=== PATIENT | male | born 1955 | race Caucasian/White ===

== ENCOUNTER → 2017-04-23 07:29 | Outpatient (CLI) | payer MEDICARE ==
[~2017-04-23] VITALS: Ht 177.8 cm; Wt 95.5 kg
--- NOTE | ~2017-04-23 | HEMODYNAMI ---
PATIENT:CHIVO FRY MEDICAL RECORD: [id number] : 55 LOCATION:[facility] ADMISSION DATE: 04/23/17 Generatedon:04/23/20179:54 Patient name: CHIVO FRY Patient #: [id number] SSN: : 1955 Date of study: 04/23/2017 Page: Of Hemodynamic Procedure Report Patient Data Patient Demographics Procedure consent was obtained First Name: CHIVO Gender: Male Last Name: LISANDRA : 1955 Patient #: [id number] Age: 61 year(s) Race: Unknown Additional ID: [id number] Contact details [address]: [address] [place] [address] State: [place] City: [place] Zip code: [address] Admission Admission Data Admission Date: 04/23/2017 Admission Time: 7:29 Procedure Procedure Types Cath Procedure Diagnostic Procedure LHC LHC w/Coronaries Miscellaneous Procedures Procedure Description Procedure Date Procedure Date: 04/23/2017 Procedure Start Time: 9:41 Procedure End Time: 9:52 Procedure Staff Name Function Og Wen MD Performing Physician Susana Israel RT Monitor Shahrzad Nelson RT Scrub Amanuel Mckenzie RN Nurse Maria Ines Sahni RN Nurse Procedure Data Cath Procedure Fluoroscopy Diagnostic fluoroscopy Total fluoroscopy Time: 3.4 time: 3.4 min min Diagnostic fluoroscopy Total fluoroscopy dose: 561 dose: 561 mGy mGy Contrast Material Contrast Material Type Amount (ml) Isovue 300 66 Entry Location Entry Primary Successful Side Size Upsize Upsize Entry Closure [place] ccessful Closure Location (Fr) 1 (Fr) 2 (Fr) Remarks Device Remarks Radial Right 6 Fr Mechanical tr artery Short Compression Estimated blood loss: 10 ml Diagnostic catheters Device Type Used For End Catheter Placement DIAGNOSTIC [place] 110cm 5 Procedure Fr catheter ([id number]) Procedure Complications No complications Procedure Medications Medication Administration Route Dosage 0.9% NaCl I.V. 100 ml/hr Oxygen NC 2 l/min Lidocaine 2% added to field 20 Heparin Flush Bag added to field 2 bags (1000units/500ml NS) Radial Cocktail added to field 1 syringe (Verapomil 2mg/Nitro 400mcg/Heparin 1500units) Versed I.V. 1 mg Fentanyl I.V. 50 mcg Versed I.V. 1 mg Fentanyl I.V. 50 mcg Fentanyl I.V. 50 mcg Fentanyl I.V. 50 mcg Versed I.V. 1 mg Hemodynamics Rest Heart Rate: 47 (bpm) Snapshots Pre Cath Intra NCS Post Cath Vital Signs Time Heart Resp SPO2 etCO2 NIBP (mmHg) Rhythm Pain Sedation Rate (ipm) (%) (mmHg) Status Level (bpm) 9:02:57 49 22 96 31.6 125/76(102) NSR 0 (11) 10(A) , No pain 9:07:56 48 17 96 25.6 Measuring NSR 0 (11) 10(A) , No pain 9:08:08 48 17 95 25.6 121/64(90) NSR 0 (11) 10(A) , No pain 9:12:24 48 16 96 32.4 118/68(89) NSR 0 (11) 10(A) , No pain 9:17:23 44 16 96 32.4 Measuring NSR 0 (11) 10(A) , No pain 9:17:33 46 15 95 33.1 126/66(98) NSR 0 (11) 10(A) , No pain 9:21:49 46 16 96 36.2 115/73(91) NSR 0 (11) 10(A) , No pain 9:26:01 47 15 96 18.1 112/73(87) NSR 0 (11) 10(A) , No pain 9:31:06 50 14 94 11.3 119/72(87) NSR 0 (11) 10(A) , No pain 9:35:22 63 16 96 21.8 108/66(87) NSR 0 (11) 10(A) , No pain 9:39:34 48 16 95 33.9 121/68(94) NSR 0 (11) 9(A) , No pain 9:43:48 66 16 97 33.1 107/58(72) NSR 0 (11) 9(A) , No pain 9:47:54 71 16 96 38.4 118/82(99) NSR 0 (11) 9(A) , No pain 9:52:57 52 14 98 11.3 123/79(117) NSR 0 (11) 10(A) , No pain Medications Time Medication Route Dose Verified Delivered Reason Notes E ffectiveness by by 8:44:15 0.9% NaCl I.V. 100 Og Maria Ines used for ml/hr Bettye Sahni RN procedure 8:44:22 Oxygen NC 2 l/min Og Spann Per Bettye Sahni RN physician 8:44:31 Lidocaine 2% added 20ml Og Foley for local to vial Bettye Wen MD anesthetic field 8:44:37 Heparin Flush added 2 bags Og Foley used for Bag to Bettye Wen MD procedure (1000units/500ml field NS) 8:58:47 Radial Cocktail added 1 Ogilda Foley for (Verapomil to syringe Bettye Wen MD vasodilation 2mg/Nitro field 400mcg/Heparin 1500units) 9:35:27 Versed I.V. 1 mg Og Wellsfany for sedation Bettye Sahni RN 9:35:35 Fentanyl I.V. 50 mcg Og Wellsfany for sedation Bettye Sahni RN 9:37:23 Versed I.V. 1 mg Og Wellsfany for sedation Bettye Sahni RN 9:37:30 Fentanyl I.V. 50 mcg Og Maria Ines for sedation Bettye Sahni RN 9:40:17 Fentanyl I.V. 50 mcg Og Well[place] for sedation Bettye Sahni RN 9:42:44 Fentanyl I.V. 50 mcg Og [place] for sedation Bettye Sahni RN 9:49:00 Versed I.V. 1 mg Og Wellsfany for sedation Bettye Sahni RN Procedure Log Time Note 8:33:53 Diagnostic Cath Status : Elective 8:35:25 Susana Israel RT(R) sent for patient. Start room use. 8:35:26 Time tracking: Regular hours 8:35:30 Plan of Care:Hemodynamics will remain stable., Cardiac rhythm will remain stable., Comfort level will be maintained., Respiratory function will remain adequate., Patient/ family verbilizes understanding of procedure., Procedure tolerated without complication., Recovers from procedure without complications.. 8:44:15 0.9% NaCl 100 ml/hr I.V. was administered by Maria Ines Sahni RN; used for procedure; 8:44:22 Oxygen 2 l/min NC was administered by Maria Ines Sahni RN; Per physician; 8:44:31 Lidocaine 2% 20ml vial added to field was administered by Og Wen MD; for local anesthetic; 8:44:37 Heparin Flush Bag (1000units/500ml NS) 2 bags added to field was administered by Og Wen MD; used for procedure; 8:57:53 Patient received from Pre/Post Procedure Room to CCL 2 Alert and oriented. Tansferred to table in Supine position. 8:57:54 Warm blankets applied, and erick hugger turned on for patient comfort. 8:57:55 Correct patient and procedure confirmed by team. 8:57:57 Signed procedure consent form obtained from patient. 8:57:58 ECG and BP/O2 sat monitors applied to patient. 8:58:47 Radial Cocktail (Verapomil 2mg/Nitro 400mcg/Heparin 1500units) 1 syringe added to field was administered by gO Wen MD; for vasodilation; 9:01:49 Vital chart was started 9:02:02 Baseline sample Acquired. 9:02:09 Rhythm: sinus rhythm 9:03:03 Full Disclosure recording started 9:03:16 H&P Date Dictated: 04/22/2017 Within 30 days and on chart., H&P Addendum completed by physician on day of procedure. (MUST COMPLETE FOR ALL OUTPATIENTS). 9:03:18 Pre-procedure instructions explained to patient. 9:03:19 Family in waiting room. 9:03:21 Patient NPO since Midnight. 9:03:27 Is the patient allergic to Iodine/contrast media? No. 9:03:30 Was the patient premedicated? Yes 9:03:37 Is patient on blood thinner?Yes 9:03:40 ACC The patient was administered the following blood thiners within the last 24 hours: ACCPlavix 9:03:45 Patient diabetic? Yes. 9:03:52 If diabetic: On Metformin? Yes 9:03:56 If on Metformin: Last Dose? 04/21/2017 9:04:02 Previous problem with sedation/anesthesia? No ? 9:04:06 Snore? Yes 9:04:07 Sleep apnea? No 9:04:18 IV patent on arrival in left forearm with 0.9% NaCl at [facility]. 9:05:14 Right Radial & Right Groin area was prepped with chlora-prep and draped in sterile fashion 9:05:16 Alarms reviewed by RVal N. 9:05:16 Sharps counted by scrub and verified by R.N. 9:05:18 Physician paged 9:16:26 Zero performed for pressure channel P1 9:34:49 Physician arrived 9:34:50 --------ALL STOP TIME OUT------ 9:34:51 Final Timeout: patient, procedure, and site verified with staff and physician. All members of the team are in agreement. 9:34:53 Right Radial & Right Groin site verified by team. 9:34:58 Physical assessment completed. ASA score P 2 - A patient with mild systemic disease as per Og Wen MD. 9:35:02 Sedation plan: IV Moderate Sedation Medication:Versed, Fentanyl 9:35:27 Versed 1 mg I.V. was administered by Maria Ines Sahni RN; for sedation; 9:35:28 Use device set Radial Dx 9:35:30 ACIST Syringe (30623) opened to sterile field. 9:35:31 Medline Cath Pack ([id number]) opened to sterile field. 9:35:31 Bag Decanter (2002) opened to sterile field. 9:35:32 SHEATH 6FR Slender ([id number]) opened to sterile field. 9:35:32 DIAGNOSTIC WIRE .035 260cm J wire (394113) opened to sterile field. 9:35:33 ACIST Hand Control (89538) opened to sterile field. 9:35:34 ACIST Manifold (58662) opened to sterile field. 9:35:34 Tegaderm 4 x 4 (1626W) opened to sterile field. 9:35:35 Fentanyl 50 mcg I.V. was administered by Maria Ines Sahni RN; for sedation; 9:35:35 MBrace Wrist Support ([id number]) opened to sterile field. 9:35:41 TR BAND Standard ([id number]) opened to sterile field. 9:37:23 Versed 1 mg I.V. was administered by Maria Ines Sahni RN; for sedation; 9:37:30 Fentanyl 50 mcg I.V. was administered by Maria Ines Sahni RN; for sedation; 9:40:17 Fentanyl 50 mcg I.V. was administered by Maria Ines Sahni RN; for sedation; 9:41:11 Procedure started. 9:41:16 Local anesthetic to right radial artery with Lidocaine 2% by Og Wen MD.INITIAL ACCESS ONLY 9:41:45 A 6 Fr Short sheath was inserted into the Right Radial artery 9:42:24 A DIAGNOSTIC [place] 110cm 5 Fr catheter (111809) was advanced over the wire and used for Procedure. 9:42:44 Fentanyl 50 mcg I.V. was administered by Maria Ines Sahni RN; for sedation; 9:43:11 LV angiography performed. 9:43:38 EF : 60 % 9:43:50 RCA angiography performed. 9:45:19 Catheter removed. 9:45:31 GUIDE 6FR XB 3.5 catheter ([id number]) opened to sterile field. 9:47:16 unable to cannulate 9:47:18 Catheter removed. 9:47:46 GUIDE 5FR EBU 3.0 catheter (BS9PVM60) opened to sterile field. 9:47:52 LCA angiography performed. 9:49:00 Versed 1 mg I.V. was administered by Maria Ines Sahni RN; for sedation; 9:49:29 Catheter removed. 9:49:41 TR BAND Large ([id number]) opened to sterile field. 9:50:14 Sheath removed intact; hemostasis achieved with Mechanical Compression to the Right Radial artery. 9:50:17 Procedure ended.(Physican Out) 9:50:28 Fluoroscopy time 03.40 minutes. 9:50:34 Fluoroscopy dose: 561 mGy 9:50:34 Flurop Dose total: 561 9:50:41 Contrast amount:Isovue 300 66ml. 9:50:42 Sharps counted by scrub and verified by R.N. 9:50:46 TR band inflated with 11cc of air. 9:50:47 Insertion/operative site no bleeding no hematoma. 9:50:50 Post Procedure Pulses reassessed and unchanged 9:50:53 Post-procedure physical assessment completed. ASA score P 2 - A patient with mild systemic disease as per Og Wen MD. 9:50:56 Post procedure rhythm: unchanged. 9:50:59 Estimated blood loss: 10 ml 9:51:00 Post procedure instruction explained to patient.Patient verbalizes understanding. 9:51:27 Procedure and supply charges have been captured, reviewed, submitted and are correct. 9:52:01 Procedure Complication : No complications 9:52:04 Vital chart was stopped 9:52:04 See physician's report for complete and final results. 9:52:06 Report given to Pre/Post Procedure Room. 9:52:09 Patient transfered to Pre/Post Procedure Room with Stretcher. 9:52:11 Procedure ended. 9:52:11 Full Disclosure recording stopped 9:52:17 End room use (Document Last) Device Usage Item Name Manufacture Quantity Catalog Hospital Part Current Minima l Lot# / Number Charge Number Stock Stock Serial# Code ACIST Acist 1 90064 029564 994246 443422 20 Syringe Medical (68570) Systems Inc Medline Cath Cardinal 1 [id number] 664848 14771 715942 5 Pack Health ([id number]) Bag Decanter Microtek 1 2001S 617823 99745 867577 5 () Medical Inc. SHEATH 6FR Terumo 1 [id number] 385427 672073 002259 40 Slender ([id number]) DIAGNOSTIC [facility] [place] 1 616981 627920 780226 097586 30 WIRE .035 260cm J wire (541380) ACIST Hand Acist 1 96815 752845 810386 593551 5 Control Medical (47314) Systems Inc ACIST Acist 1 56460 355383 695379 289092 5 Manifold Medical (03787) Systems Inc Tegaderm 4 x 3M 1 1626W 343299 634505 315819 5 4 (1626W) MBrace Wrist Advanced 1 140-0250-00 598681 81689 503610 5 Support Vascular ([id number]) Dynamics TR BAND Terumo 1 [id number] 938025 648039 763010 40 Standard ([id number]) DIAGNOSTIC Terumo 1 40-5013 525618 346852 557576 5 [place] 110cm 5 Fr catheter (664221) GUIDE 6FR XB Cardinal 1 [id number] 046235 538813 127551 2 3.5 catheter DApps Fund (93558733) GUIDE 5FR Medtronic 1 [id number] 538239 148511 732251 1 EBU 3.0 catheter (HD2QEB28) TR BAND Terumo 1 [id number] 775443 583041 217505 40 Large ([id number]) Signature Audit [place] Stage Time Signature Unsigned Intra-Procedure 04/23/2017 Susana Israel 9:54:43 AM RT(R) Signatures Monitor : Susana Israel Signature : RT Date : Time : [id number] [place] [address]
[~2017-04-23 07:29] MED LIST: FENOFIBRATE160 MG PO; GLUCOPHAGE500 MG PO; LIPITOR20 MG PO; LISINOPRIL5 MG PO; TENORETIC 50 TA1 TAB PO
[2017-04-23 07:54] VITALS: BP 117/72; Ht 177.8 cm; Wt 95.5 kg
[2017-04-23 08:12] LABS: BASOPHILS 0.7 % (0-2); EOSINOPHILS 2.5 % (0-7); HEMATOCRIT 43.8 % (42.0-54.0); HEMOGLOBIN 15.1 g/dL (13.5-17.5); IMMATURE GRANULOCYTES 0.4 % (0-5); LYMPHOCYTES 23.6 % (15-50); MCH 34.3 pg (26.0-34.0); MCHC 34.5 g/dL (31.0-37.0); MCV 99.5 fL (80.0-100.0); MEAN PLATELET VOLUME 10.9 fL (7.4-10.4); MONOCYTES 9.4 % (2-11); NEUTROPHILS 63.4 % (40-80); PLATELET COUNT 241 10x3/uL (130-400); RDW 13.1 % (11.5-14.5); WBC 10.5 10x3/uL (4.8-10.8)
[2017-04-23 08:19] LABS: CALC OSMOLALITY 291 mosm/kg (275-300); CALCIUM 9.2 mg/dL (8.5-10.1); CARBON DIOXIDE 29.4 mmol/L (21.0-32.0); CHLORIDE - SERUM 102 mmol/L (98-107); GLUCOSE 154 mg/dL (74-106); POTASSIUM - SERUM 3.7 mmol/L (3.5-5.1); SODIUM 144 mmol/L (136-145); UREA NITROGEN 19 mg/dL (7-18); eGFR NON AFRICAN AMERICAN 81 mL/min (90-120)
--- NOTE | 2017-04-23 10:15 | NUR ---
1015 TR BAND TO R/WRIST CDI NO BLEEDING NO HEMATOMA NOTED. SB RATE 45 CHEST PAIN DENIED. PATIENT TOLERATING PO FLUIDS WITH NAUSEA DENIED
--- NOTE | 2017-04-23 10:31 | NUR ---
SITTING WITH HOB UP 30 DEGREES EATING SANDWICH AND TALKING TO FAMILY. TR BAND REMAINS CDI WITH NO DISTRESS OR COMPLAINTS.
--- NOTE | 2017-04-23 10:41 | NUR ---
TR BAND REMAINS TO R/WRIST WITH NO COMPLAINTS OF PAIN. VSS WITH FAMILY AT SIDE
--- NOTE | 2017-04-23 11:05 | NUR ---
RESTING QUIETLY WITH EYES CLOSED NO DISTRESS NOTED. TR BAND REMAINS CDI
--- NOTE | 2017-04-23 11:29 | NUR ---
VSS WITH NO CHANGE IN ASSESSMENT FAMILY AT SIDE
--- NOTE | 2017-04-23 11:36 | NUR ---
4 CC AIR REMOVED FROM TR BAND WITH NO BLEEDING NO HEMATOMA NOTED. PIV REMOVED WITH DRESSING APPLIED. PATIENT UP TO GET DRESSED FOR DISCHARGE HOME
--- NOTE | 2017-04-23 11:54 | NUR ---
4 CC AIR REMOVED FROM TR BAND WITH NO BLEEDING NO HEMATOMA NOTED. VERBAL AND WRITTEN DISCHARGE GONE OVER WITH PATIENT AND FAMILY.
--- NOTE | 2017-04-23 11:57 | NUR ---
TR BAND REMOVED WITH DRESSING APPLIED. NO BLEEDING NO HEMATOMA NOTED. LEFT AMBULATORY WITH AT SIDE FOR TRANSPORT HOME
--- NOTE | 2017-04-27 12:15 | OP ---
PATIENT NAME: CHIVO FRY MEDICAL RECORD: [id number] :55 LOCATION:[facility] ADMISSION DATE: SURGEON: VINNIE TORRES MD DATE OF OPERATION: 04/23/2017 DATE OF SERVICE: 04/23/2017 PROCEDURES: 1. Left heart catheterization. 2. Selective coronary angiography. 3. Left ventriculogram. INDICATION: Chest pain compatible with angina, abnormal nuclear stress test. PROCEDURE IN DETAIL: After informed consent was obtained and after detailed explanation of risks, benefits as well as alternative therapies, the patient elected to proceed with angiogram and heart catheterization. The right radial area was prepped and draped in normal sterile fashion. The right radial artery was cannulated via modified Seldinger technique with placement of 6-Greek sheath. All catheters were exchanged through this sheath. FINDINGS: The left ventriculogram was performed in standard 30-degree DEWEY view, reveals good cardiac wall motion throughout all segments. Overall ejection fraction estimated 60%. SELECTIVE CORONARY ANGIOGRAPHY: Left main, left anterior descending, left circumflex, right coronary are all smooth-walled vessels with no angiographic evidence of coronary artery disease. OVERALL IMPRESSION: 1. No angiographic evidence of coronary artery disease. 2. Normal left heart pressures. 3. Normal left ventricular systolic function. Chest pain is noncardiac in etiology. No further cardiac workup needs to be ascertained. TRANSINT:[id number] Voice Confirmation ID: [id number] DOCUMENT ID: [id number] VINNIE TORRES MD at 1215 CC: [id number] DICTATION DATE: 04/23/17 0952 TABLE ATTENDANT: 04/23/[address] [facility] CLI 04/23/17 [place] [address]
== END | disposition home or self-care (01) ==
LOC: D.CATH 07:29
PROVIDERS: Internal Medicine Interventional Cardiology
DX: I20.9 Angina pectoris, unspecified (principal); R94.30 Abnormal result of cardiovascular function study, unspecified; I10 Essential (primary) hypertension; E78.5 Hyperlipidemia, unspecified; Z01.812 Encounter for preprocedural laboratory examination